=== PATIENT | male | born 1980 | race Caucasian/White ===

== ENCOUNTER 2024-02-26 01:04 | Emergency (ER) | payer OTHER ==
[~2024-02-26] VITALS: Ht 180.3 cm; Wt 86.2 kg
[2024-02-26 01:18] VITALS: BP 135/85; PULSE 85; RESP 18; TEMP 97.8; O2SAT 98
[2024-02-26] MEDS ORDERED: SULF-59 PO (01:45)
== END 2024-02-26 02:53 | disposition home or self-care (01) ==
LOC: MED 01:04
DX: L03.114 Cellulitis of left upper limb (principal); Z79.899 Other long term (current) drug therapy
CPT/HCPCS: 90471; 90715; 99283